=== PATIENT | female | born 1955 | race American Indian/Alaskan Native ===

== ENCOUNTER 2017-04-05 16:27 | Emergency (ER) | payer OTHER ==
--- NOTE | 2017-04-05 18:12 | Cat Scan Report ---
FINAL REPORT PROCEDURE: CT HEAD/BRAIN WO CON TECHNIQUE: Computerized tomography of the head was performed without contrast material. HISTORY: head injury/swelling COMPARISON: No prior studies are available for comparison. FINDINGS: No CT evidence of acute intracranial hemorrhage, mass, hydrocephalus, or acute territorial infarction. The intracranial arteries are symmetric in density. There is significant left frontal scalp soft tissue swelling. Calvarium is intact. Visualized paranasal sinuses and mastoids are aerated. IMPRESSION: Left frontal scalp soft tissue swelling. No CT evidence of acute intracranial abnormality
[2017-04-05 22:30] VITALS: BP 177/98
== END 2017-04-05 23:42 | disposition left against medical advice (07) ==
LOC: ED 16:27
DX: R51 Headache (principal); Z53.21 Procedure and treatment not carried out due to patient leaving prior to being seen by health care provider
CPT/HCPCS: 70450